=== PATIENT | female | born 1970 | race Caucasian/White ===

== ENCOUNTER 2019-01-02 17:44 | Emergency (ER) | payer SELFPAY ==
--- NOTE | 2019-01-02 18:58 | ER Document Report ---
ED Medical Screen (RME) - General Chief Complaint: Numbness Stated Complaint: HAND NUMBNESS Time Seen by Provider: 01/02/19 18:56 Primary Care Provider: ROSEMARY VILLA NP [Primary Care Provider] - Follow up as needed Mode of Arrival: Ambulatory Information source: Patient Notes: Patient presents reporting a 5-year history of her hands and feet going to sleep. Patient states that the pain is worse at night and wakes her up in the mornings. Patient states that her hands are very painful and they swell. Patient states she has to shake her arms and change position to get them to feel better. Patient states her symptoms have been worse over the past 3 days. I have greeted and performed a rapid initial assessment of this patient. A comprehensive ED assessment and evaluation of the patient, analysis of test results and completion of the medical decision making process will be conducted by additional ED providers. TRAVEL OUTSIDE OF THE [place] IN LAST 30 DAYS: No - Related Data Allergies/Adverse Reactions: Penicillins Allergy (Mild, Verified 01/02/19 18:52) Generalized rash Past Medical History - Past Medical History Cardiac Medical History: Denies: Hx Heart Attack, Hx Hypertension Pulmonary Medical History: Reports: Hx Asthma - no meds, pneumonia last yr, Hx COPD - prn inhaler, Hx Pneumonia Neurological Medical History: Denies: Hx Cerebrovascular Accident, Hx Seizures GI Medical History: Reports: Hx Hepatitis - hep c. Denies: Hx Hiatal Hernia, Hx Ulcer Psychiatric Medical History: Reports: Hx Anxiety, Hx Bipolar Disorder, Hx Depression Infectious Medical History: Reports: Hx Hepatitis - hep c Past Surgical History: Reports: Hx Orthopedic Surgery - right hand, Hx Tubal Ligation. Denies: Hx Hysterectomy, Hx Mastectomy, Hx Open Heart Surgery, Hx Pacemaker - Immunizations Hx Diphtheria, Pertussis, Tetanus Vaccination: Yes Physical Exam - General General appearance: Appears well, Alert Notes: No obvious swelling to the hands, 2+ bilateral radial pulse, cap refill less than 3 seconds, positive Phalen sign Doctor's Discharge - Discharge Referrals: ROSEMARY VILLA NP [Primary Care Provider] - Follow up as needed
== END 2019-01-02 23:00 | disposition left against medical advice (07) ==
LOC: ER 17:44
DX: R20.0 Anesthesia of skin (principal); M79.641 Pain in right hand; M79.642 Pain in left hand; J44.9 Chronic obstructive pulmonary disease, unspecified; Z88.0 Allergy status to penicillin; Z53.20 Procedure and treatment not carried out because of patient's decision for unspecified reasons
CPT/HCPCS: 82962; 99281

== ENCOUNTER 2020-02-23 18:51 | Emergency (ER) | payer SELFPAY ==
--- NOTE | 2020-02-23 20:55 | ER Document Report ---
ED Flu Like - General Chief Complaint: Flu Symptoms Stated Complaint: HEADACHE,BODY PAIN,SORE THROAT Time Seen by Provider: 02/23/20 19:45 Primary Care Provider: ROSEMARY VILLA, OVER[employer]ER [[employer]IED HE[employer] PROFESSIONAL] - Follow up as needed TRAVEL OUTSIDE OF THE [place] IN LAST 30 DAYS: No - HPI Notes: 49-year-Old female presents to ED for evaluation of cold and cough symptoms for the last several days. Notes that she has not been traveling or been around anyone else who is sick. She does live with 6 other people. She reports that she has increased sore throat. Notes that she also has increased nasal congestion. Reports that her cough is nonproductive. States that she does have a history of COPD and is a former smoker who quit 4 years ago. Patient denies any chest pain. States that she does not have abdominal pain or dysuria or hematuria. Patient denies concern for Covid. Denies use of any over the counter medications to improve her symptoms. Notes that she is not having any ear pain. Reports discomfort when she swallows however denies any difficulties breathing or handling her secretions. - Related Data Allergies/Adverse Reactions: Penicillins Allergy (Mild, Verified 01/02/19 18:52) Generalized rash Home Medications: Aspirin Past Medical History - Social History Smoking Status: Former Smoker Frequency of alcohol use: None Drug Abuse: None Family History: Reviewed & Not Pertinent, COPD Patient has homicidal ideation: No - Past Medical History Cardiac Medical History: Denies: Hx Heart Attack, Hx Hypertension Pulmonary Medical History: Reports: Hx Asthma - no meds, pneumonia last yr, Hx COPD - prn inhaler, Hx Pneumonia Neurological Medical History: Denies: Hx Cerebrovascular Accident, Hx Seizures GI Medical History: Reports: Hx Hepatitis - hep c. Denies: Hx Hiatal Hernia, Hx Ulcer Psychiatric Medical History: Reports: Hx Anxiety, Hx Bipolar Disorder, Hx Depression Infectious Medical History: Reports: Hx Hepatitis - hep c Past Surgical History: Reports: Hx Orthopedic Surgery - right hand, Hx Tubal Ligation. Denies: Hx Hysterectomy, Hx Mastectomy, Hx Open Heart Surgery, Hx Pacemaker - Immunizations Hx Diphtheria, Pertussis, Tetanus Vaccination: Yes Review of Systems - Review of Systems Notes: Constitutional: Negative for fever. HENT: + for sore throat. Eyes: Negative for visual changes. Cardiovascular: Negative for chest pain. Respiratory: Negative for shortness of breath. Gastrointestinal: Negative for abdominal pain, vomiting or diarrhea. Genitourinary: Negative for dysuria. Musculoskeletal: Negative for back pain. Skin: Negative for rash. Neurological: Negative for headaches, weakness or numbness. 10 point ROS negative except as marked above and in HPI. Physical Exam - Vital signs Vitals: Temp Pulse Resp BP Pulse Ox 98.5 F 87 20 127/67 H 93 02/23/20 18:58 02/23/20 18:58 02/23/20 18:58 02/23/20 18:58 02/23/20 18:58 General: No acute distress. Alert and oriented x3. Sitting comfortably in a stretcher. Skin: Intact without any jaundice, pallor, or erythema. Warm and dry. HEENT: Normocephalic, atraumatic. Pupils are equal round reactive to light and accommodation. Extraocular movements are intact. TMs without erythema with bulging. Canals are clear. Nares patent with discharge. Teeth in good condition. Pharynx with erythema without edema, or exudates. Bilateral tonsillar enlargement. Uvula is midline. Airway is patent. Neck: Supple with no lymphadenopathy. Full range of motion. Heart: Regular rate and rhythm. S1,S2. No murmurs, rubs, or gallops. Lungs: Diminished bilateral bases. No wheezes, rhonchi, rales. Equal chest expansion. No retractions. Abdomen: Soft, nontender to palpation, nondistended. Positive bowel sounds in all 4 quadrants. No hepatosplenomegaly. No masses. No CVA tenderness bilaterally. Neuro: GCS 15. Moving all extremities without discomfort. Extremities: No calf tenderness or edema. No cyanosis or clubbing. Radial and pedal pulses 2+ bilaterally. Brisk capillary refill. Psych: Mood and affect appropriate. Course - Re-evaluation Re-evalutation: 02/23/20 22:20 49-year-old female presents to ED for evaluation of cough and cold symptoms for the last several days. Patient notes that she does have history of COPD. She reports she has not smoked in 4 years. Patient was evaluated with chest x-ray which shows bilateral lower lobe infiltrates. Patient was evaluated with Covid swab which is still pending at this time. Influenza testing is negative. Patient was also evaluated with a rapid strep test which is negative. Patient was started on albuterol medications with improvement. She will be continued on steroids as well as a course of azithromycin. We had extensive conversation about use of antibiotics and have decided to move forward with this given her underlying lung history. Patient is agreeable to using these medications only if ones that we will fit within her budget can be determined. I have agreed to attempt to find medications that patient is agreeable to use. Patient has encouraged to follow-up with her primary care physician return if she develops any new or worsening symptoms. Patient will also remain on home quarantine with her family until results of her Covid testing are obtained. Patient verbalized her understanding of these indications and is agreeable to this plan of care. - Vital Signs Vital signs: Temp Pulse Resp BP Pulse Ox 98.5 F 87 20 127/67 H 93 02/23/20 20:35 02/23/20 18:58 02/23/20 18:58 02/23/20 18:58 02/23/20 18:58 - Laboratory Results Critical Laboratory Results Reviewed: No Critical Results - Radiology Results Critical Radiology Results Reviewed: No Critical Results Discharge - Discharge Clinical Impression: Person under investigation for COVID-19 Bilateral pneumonia Qualifiers: Pneumonia type: due to unspecified organism Lung location: unspecified part of lung Qualified Code(s): J18.9 - Pneumonia, unspecified organism Condition: Stable Disposition: HOME, SELF-CARE Instructions: COVID-19 Guidance for Persons Under Investigation, Viral Syndrome ([facility]) Prescriptions: Prednisone [Deltasone 20 mg Tablet] 40 mg PO DAILY #10 tablet Albuterol Sulfate [Proair Digihaler] 90 mcg IH Q4H PRN #1 [id number] PRN Reason: Azithromycin [Zithromax 250 mg Tablet] 250 mg PO DAILY #4 tablet Referrals: ROSEMARY VILLA, OVER[employer]ER [ALLIED HEALTH PROFESSIONAL] - Follow up as needed
--- NOTE | 2020-02-23 21:27 | RADIOLOGY REPORT (SQ) ---
EXAM DESCRIPTION: XR CHEST 1 VIEW COMPLETED DATE/TME: 02/23/2020 21:05 CLINICAL HISTORY: 49 years, Female, Covid swab COMPARISON: None. EXAM DESCRIPTION: CHEST SINGLE VIEW CLINICAL HISTORY: Covid swab COMPARISON: 04/23/2014 FINDINGS: Single view of the chest is submitted. Cardiac silhouette is normal. There is poorly defined consolidation at each lung base. The upper lungs appear clear. There is no significant pulmonary vascular engorgement. IMPRESSION: Bilateral consolidations.
[2020-02-23 21:40] LABS: A TYPE INFLUENZA AG NEGATIVE (NEGATIVE); B INFLUENZA AG NEGATIVE (NEGATIVE)
[2020-02-23] MEDS ORDERED: AZITHROMYCIN 250 MG TABLET PO ONE (22:00)
[2020-02-23] MEDS ORDERED: DEXAMETHASONE 4 MG TABLET PO ONE (22:00)
[2020-02-23 22:40] VITALS: BP 112/70
== END 2020-02-23 22:40 | disposition home or self-care (01) ==
LOC: ER 18:51
DX: J18.9 Pneumonia, unspecified organism (principal); J44.0 Chronic obstructive pulmonary disease with (acute) lower respiratory infection; R09.81 Nasal congestion; R05 Cough; Z87.891 Personal history of nicotine dependence; Z79.82 Long term (current) use of aspirin; Z88.0 Allergy status to penicillin; Z20.828 Contact with and (suspected) exposure to other viral communicable diseases
CPT/HCPCS: 99284; 87070; 87880; 87635; 87804; 71045; J8540; C9803